=== PATIENT | male | born 1955 | race African-American/Black ===

== ENCOUNTER 2020-06-24 09:28 | Inpatient (IN) | payer OTHER ==
[2020-06-24 11:35] VITALS: BMI 19.2
[2020-06-24] MEDS ORDERED: METHADONE HCL 10 MG TABLET (FOR DETOX USE ONLY) ONE (11:48)
[2020-06-24] MEDS ORDERED: MAGNESIUM HYDROX 2400MG/30ML ORAL SUSPENSION 30 ML CUP PO PRN (12:01)
[2020-06-24] MEDS ORDERED: MAG HYDROX/AL HYDROX/SIMETH 30 ML UNIT-DOSE CUP PO PRN (12:01)
[2020-06-24] MEDS ORDERED: BISMUTH SUBSALICYLATE 262 MG/15 ML BTL PO PRN (12:01)
[2020-06-24] MEDS ORDERED: NICOTINE POLACRILEX 2 MG GUM BUC PRN (12:01)
[2020-06-24] MEDS ORDERED: ACETAMINOPHEN 325 MG TABLET (FP) PO PRN ×2 (12:01)
[2020-06-24] MEDS ORDERED: METHADONE HCL 10 MG TABLET (FOR DETOX USE ONLY) PO ONE (12:01)
[2020-06-24] MEDS ORDERED: METHOCARBAMOL 500 MG TABLET PO PRN (12:01)
[2020-06-24] MEDS ORDERED: MAGNESIUM CITRATE 300 ML BOTTLE PO PRN (12:01)
[2020-06-24] MEDS ORDERED: cloNIDine HCL 0.1 MG TABLET PO PRN (12:01)
[2020-06-24] MEDS ORDERED: IBUPROFEN 400 MG TABLET (FP) PO PRN (12:01)
[2020-06-24] MEDS ORDERED: MENTHOL/PHENOL 1 EACH UD MM PRN (12:01)
[2020-06-24] MEDS ORDERED: ONDANSETRON *ODT* 4 MG TABLET SL PRN (12:01)
[2020-06-24] MEDS: NICOTINE 7 MG/24 HOURS TOPICAL PATCH TD SCH (13:14)
[2020-06-24] MEDS: HYDROCHLOROTHIAZIDE 25 MG TABLET (FP) PO SCH (13:14)
[2020-06-24] MEDS: hydrOXYzine PAMOATE 25 MG CAPSULE (FP) PO SCH ×3 (13:14→22:26)
[2020-06-24] MEDS: PRENATAL VITAMINS W/ FOLIC ACID TABLET (FP) PO SCH (13:14)
[2020-06-24] MEDS: THIAMINE HCL 100 MG TABLET (FP) PO SCH (22:24)
[2020-06-24] MEDS: MELATONIN 5 MG TABLETS PO SCH (22:24)
[2020-06-25] MEDS: hydrOXYzine PAMOATE 25 MG CAPSULE (FP) PO SCH ×5 (07:06→22:26)
[2020-06-25] MEDS ORDERED: METHADONE HCL 5 MG TABLET (FOR DETOX USE ONLY) ONE (09:00)
[2020-06-25] MEDS ORDERED: METHADONE HCL 10 MG TABLET (FOR DETOX USE ONLY) ONE (09:00)
[2020-06-25] MEDS ORDERED: METHADONE (DETOX) 20 MG, METHADONE (DETOX) 5 MG PO ONE (10:00)
[2020-06-25] MEDS: HYDROCHLOROTHIAZIDE 25 MG TABLET (FP) PO SCH (10:42)
[2020-06-25] MEDS: PRENATAL VITAMINS W/ FOLIC ACID TABLET (FP) PO SCH (10:42)
[2020-06-25] MEDS: NICOTINE 7 MG/24 HOURS TOPICAL PATCH TD SCH (10:42)
[2020-06-25 11:08] LABS: HEMATOCRIT 38.2 % (35.4-49); HEMOGLOBIN 12.8 GM/dL (11.7-16.9); MCH 33.5 pg (25.7-33.7); MCHC 33.6 g/dl (32.0-35.9); MEAN CELL VOLUME 99.8 fl (80-96); MEAN PLT VOLUME 11.3 fl (7.5-11.1); PLATELET COUNT 109 K/MM3 (134-434); RBC 3.82 M/mm3 (4.00-5.60); RDW 15.6 % (11.9-15.9); WHITE BLOOD COUNT 3.5 K/mm3 (4.0-10.0)
[2020-06-25 11:17] LABS: CALCIUM 9.4 mg/dL (8.5-10.1)
[2020-06-25 11:18] LABS: ALBUMIN 3.5 g/dl (3.4-5.0)
[2020-06-25 11:23] LABS: BILIRUBIN,TOTAL 0.5 mg/dL (0.2-1); TOT PROT 7.1 g/dl (6.4-8.2)
[2020-06-25] MEDS: MELATONIN 5 MG TABLETS PO SCH (22:26)
[2020-06-25] MEDS: THIAMINE HCL 100 MG TABLET (FP) PO SCH (22:26)
[2020-06-26] MEDS: hydrOXYzine PAMOATE 25 MG CAPSULE (FP) PO SCH ×5 (06:49→22:03)
[2020-06-26] MEDS ORDERED: METHADONE HCL 10 MG TABLET (FOR DETOX USE ONLY) PO ONE (10:00)
[2020-06-26] MEDS: NICOTINE 7 MG/24 HOURS TOPICAL PATCH TD SCH (10:19)
[2020-06-26] MEDS: HYDROCHLOROTHIAZIDE 25 MG TABLET (FP) PO SCH (10:19)
[2020-06-26] MEDS: PRENATAL VITAMINS W/ FOLIC ACID TABLET (FP) PO SCH (10:19)
[2020-06-26] MEDS: MELATONIN 5 MG TABLETS PO SCH (22:03)
[2020-06-26] MEDS: THIAMINE HCL 100 MG TABLET (FP) PO SCH (22:03)
[2020-06-27] MEDS: hydrOXYzine PAMOATE 25 MG CAPSULE (FP) PO SCH ×5 (05:50→22:30)
[2020-06-27] MEDS ORDERED: METHADONE HCL 5 MG TABLET (FOR DETOX USE ONLY) ONE (09:24)
[2020-06-27] MEDS ORDERED: METHADONE HCL 10 MG TABLET (FOR DETOX USE ONLY) ONE (09:24)
[2020-06-27] MEDS ORDERED: METHADONE (DETOX) 10 MG, METHADONE (DETOX) 5 MG PO ONE (10:00)
[2020-06-27] MEDS: PRENATAL VITAMINS W/ FOLIC ACID TABLET (FP) PO SCH (10:11)
[2020-06-27] MEDS: HYDROCHLOROTHIAZIDE 25 MG TABLET (FP) PO SCH (10:11)
[2020-06-27] MEDS: NICOTINE 7 MG/24 HOURS TOPICAL PATCH TD SCH (10:11)
[2020-06-27] MEDS: THIAMINE HCL 100 MG TABLET (FP) PO SCH (22:30)
[2020-06-27] MEDS: MELATONIN 5 MG TABLETS PO SCH (22:31)
[2020-06-28] MEDS: hydrOXYzine PAMOATE 25 MG CAPSULE (FP) PO SCH ×5 (05:15→22:12)
[2020-06-28] MEDS ORDERED: METHADONE HCL 10 MG TABLET (FOR DETOX USE ONLY) PO ONE (10:00)
[2020-06-28] MEDS: NICOTINE 7 MG/24 HOURS TOPICAL PATCH TD SCH (10:04)
[2020-06-28] MEDS: HYDROCHLOROTHIAZIDE 25 MG TABLET (FP) PO SCH (10:05)
[2020-06-28] MEDS: PRENATAL VITAMINS W/ FOLIC ACID TABLET (FP) PO SCH (10:06)
[2020-06-28 10:07] LABS: SARS-CoV-2 NAA Not Detected (Not Detected)
[2020-06-28] MEDS: THIAMINE HCL 100 MG TABLET (FP) PO SCH (22:12)
[2020-06-28] MEDS: MELATONIN 5 MG TABLETS PO SCH (22:12)
[2020-06-29] MEDS: hydrOXYzine PAMOATE 25 MG CAPSULE (FP) PO SCH ×2 (05:13→10:39)
[2020-06-29] MEDS ORDERED: METHADONE HCL 5 MG TABLET (FOR DETOX USE ONLY) PO ONE (06:00)
[2020-06-29 09:32] VITALS: BP 122/71; PULSE 110; TEMP 98.6
[2020-06-29] MEDS: HYDROCHLOROTHIAZIDE 25 MG TABLET (FP) PO SCH (10:38)
[2020-06-29] MEDS: PRENATAL VITAMINS W/ FOLIC ACID TABLET (FP) PO SCH (10:39)
[2020-06-29] MEDS: NICOTINE 7 MG/24 HOURS TOPICAL PATCH TD SCH (10:39)
== END 2020-06-29 11:45 | disposition other institution (70) | DRG 897 ==
LOC: YASAS 09:28 → Y6N 12:25
PROVIDERS: ADMIT Allergy & Immunology; ATTEND Allergy & Immunology
PROC: HZ2ZZZZ Detoxification Services for Substance Abuse Treatment (ICD-10-PCS; principal; 2020-06-24)
DX: F11.23 Opioid dependence with withdrawal (principal); F17.210 Nicotine dependence, cigarettes, uncomplicated; D69.6 Thrombocytopenia, unspecified; D72.819 Decreased white blood cell count, unspecified; I10 Essential (primary) hypertension; M54.5 Low back pain; G89.29 Other chronic pain; Z87.828 Personal history of other (healed) physical injury and trauma; Z59.0 Homelessness
CPT/HCPCS: 36415; 80053; 84520; 85027; 86780; 86803; 93005; 93010; C9803; J0735; U0003; U0005

== ENCOUNTER 2020-06-29 11:52 | Inpatient (IN) | payer OTHER ==
[2020-06-29] MEDS ORDERED: guaiFENesin 200 MG/10 ML 10 ML UNIT-DOSE CUPS PO PRN (11:54)
[2020-06-29] MEDS ORDERED: MAG HYDROX/AL HYDROX/SIMETH 30 ML UNIT-DOSE CUP PO PRN (11:54)
[2020-06-29] MEDS ORDERED: P-EPHED 60MG/TRIPROLIDI 2.5MG TABLET PO PRN (11:54)
[2020-06-29] MEDS ORDERED: LOPERAMIDE HCL 2 MG CAPSULE PO PRN (11:54)
[2020-06-29] MEDS ORDERED: MENTHOL/PHENOL 1 EACH UD MM PRN (11:54)
[2020-06-29] MEDS ORDERED: ACETAMINOPHEN 325 MG TABLET (FP) PO PRN (11:54)
[2020-06-29] MEDS ORDERED: MAGNESIUM CITRATE 300 ML BOTTLE PO PRN (11:54)
[2020-06-29] MEDS ORDERED: MAGNESIUM HYDROX 2400MG/30ML ORAL SUSPENSION 30 ML CUP PO PRN (11:54)
[2020-06-29] MEDS ORDERED: NICOTINE POLACRILEX 2 MG GUM BUC PRN (13:50)
[2020-06-29] MEDS ORDERED: hydrOXYzine PAMOATE 25 MG CAPSULE (FP) PO SCH (14:00)
[2020-06-29] MEDS: hydrOXYzine PAMOATE 25 MG CAPSULE (FP) PO PRN (22:08)
[2020-06-29] MEDS: MELATONIN 5 MG TABLETS PO SCH (22:08)
[2020-06-29] MEDS: THIAMINE HCL 100 MG TABLET (FP) PO SCH (22:09)
[2020-06-30] MEDS: NICOTINE 7 MG/24 HOURS TOPICAL PATCH TD SCH (09:39)
[2020-06-30] MEDS: PRENATAL VITAMINS W/ FOLIC ACID TABLET (FP) PO SCH (09:39)
[2020-06-30] MEDS: HYDROCHLOROTHIAZIDE 25 MG TABLET (FP) PO SCH (09:39)
[2020-06-30] MEDS: MELATONIN 5 MG TABLETS PO SCH (21:07)
[2020-06-30] MEDS: THIAMINE HCL 100 MG TABLET (FP) PO SCH (21:07)
[2020-06-30] MEDS: hydrOXYzine PAMOATE 25 MG CAPSULE (FP) PO PRN (21:08)
[2020-07-01] MEDS: PRENATAL VITAMINS W/ FOLIC ACID TABLET (FP) PO SCH (09:50)
[2020-07-01] MEDS: IBUPROFEN 400 MG TABLET (FP) PO PRN (09:52)
[2020-07-01] MEDS: hydrOXYzine PAMOATE 25 MG CAPSULE (FP) PO PRN ×2 (09:53→21:09)
[2020-07-01] MEDS: NICOTINE 7 MG/24 HOURS TOPICAL PATCH TD SCH (09:53)
[2020-07-01] MEDS: HYDROCHLOROTHIAZIDE 25 MG TABLET (FP) PO SCH (09:53)
[2020-07-01] MEDS: METHOCARBAMOL 500 MG TABLET PO SCH ×3 (13:14→21:09)
[2020-07-01] MEDS: THIAMINE HCL 100 MG TABLET (FP) PO SCH (21:09)
[2020-07-01] MEDS: MELATONIN 5 MG TABLETS PO SCH (21:09)
[2020-07-02] MEDS: METHOCARBAMOL 500 MG TABLET PO SCH ×4 (09:34→21:08)
[2020-07-02] MEDS: HYDROCHLOROTHIAZIDE 25 MG TABLET (FP) PO SCH (09:35)
[2020-07-02] MEDS: PRENATAL VITAMINS W/ FOLIC ACID TABLET (FP) PO SCH (09:35)
[2020-07-02] MEDS: NICOTINE 7 MG/24 HOURS TOPICAL PATCH TD SCH (09:35)
[2020-07-02] MEDS ORDERED: LISINOPRIL 20 MG TABLET PO ONE (11:15)
[2020-07-02] MEDS: MELATONIN 5 MG TABLETS PO SCH (21:08)
[2020-07-02] MEDS: THIAMINE HCL 100 MG TABLET (FP) PO SCH (21:08)
[2020-07-03 08:05] LABS: SARS-CoV-2 NAA Not Detected (Not Detected)
[2020-07-03] MEDS: PRENATAL VITAMINS W/ FOLIC ACID TABLET (FP) PO SCH (09:35)
[2020-07-03] MEDS: HYDROCHLOROTHIAZIDE 25 MG TABLET (FP) PO SCH (09:35)
[2020-07-03] MEDS: LISINOPRIL 10 MG TABLET PO SCH (09:35)
[2020-07-03] MEDS: NICOTINE 7 MG/24 HOURS TOPICAL PATCH TD SCH (09:35)
[2020-07-03] MEDS: METHOCARBAMOL 500 MG TABLET PO SCH ×4 (09:35→21:19)
[2020-07-03] MEDS: THIAMINE HCL 100 MG TABLET (FP) PO SCH (21:19)
[2020-07-03] MEDS: MELATONIN 5 MG TABLETS PO SCH (21:19)
[2020-07-04] MEDS ORDERED: cloNIDine HCL 0.1 MG TABLET PO ONE (07:33)
[2020-07-04] MEDS: PRENATAL VITAMINS W/ FOLIC ACID TABLET (FP) PO SCH (09:20)
[2020-07-04] MEDS: NICOTINE 7 MG/24 HOURS TOPICAL PATCH TD SCH (09:20)
[2020-07-04] MEDS: HYDROCHLOROTHIAZIDE 25 MG TABLET (FP) PO SCH (09:20)
[2020-07-04] MEDS: LISINOPRIL 10 MG TABLET PO SCH (09:20)
[2020-07-04] MEDS: METHOCARBAMOL 500 MG TABLET PO SCH ×4 (10:05→21:04)
[2020-07-04] MEDS: IBUPROFEN 400 MG TABLET (FP) PO PRN (10:51)
[2020-07-04] MEDS: MELATONIN 5 MG TABLETS PO SCH (21:04)
[2020-07-04] MEDS: THIAMINE HCL 100 MG TABLET (FP) PO SCH (21:04)
[2020-07-04] MEDS: hydrOXYzine PAMOATE 25 MG CAPSULE (FP) PO PRN (23:43)
[2020-07-05] MEDS: hydrOXYzine PAMOATE 25 MG CAPSULE (FP) PO PRN ×3 (10:10→21:32)
[2020-07-05] MEDS: HYDROCHLOROTHIAZIDE 25 MG TABLET (FP) PO SCH (10:10)
[2020-07-05] MEDS: METHOCARBAMOL 500 MG TABLET PO SCH ×4 (10:10→21:31)
[2020-07-05] MEDS: LISINOPRIL 10 MG TABLET PO SCH (10:10)
[2020-07-05] MEDS: PRENATAL VITAMINS W/ FOLIC ACID TABLET (FP) PO SCH (10:10)
[2020-07-05] MEDS: NICOTINE 7 MG/24 HOURS TOPICAL PATCH TD SCH (10:11)
[2020-07-05] MEDS: MELATONIN 5 MG TABLETS PO SCH (21:31)
[2020-07-05] MEDS: THIAMINE HCL 100 MG TABLET (FP) PO SCH (21:31)
[2020-07-06] MEDS: IBUPROFEN 400 MG TABLET (FP) PO PRN ×2 (06:40→22:09)
[2020-07-06] MEDS: PRENATAL VITAMINS W/ FOLIC ACID TABLET (FP) PO SCH (10:29)
[2020-07-06] MEDS: HYDROCHLOROTHIAZIDE 25 MG TABLET (FP) PO SCH (10:29)
[2020-07-06] MEDS: hydrOXYzine PAMOATE 25 MG CAPSULE (FP) PO PRN ×2 (10:29→14:21)
[2020-07-06] MEDS: METHOCARBAMOL 500 MG TABLET PO SCH ×4 (10:29→21:07)
[2020-07-06] MEDS: LISINOPRIL 10 MG TABLET PO SCH (10:29)
[2020-07-06] MEDS: NICOTINE 7 MG/24 HOURS TOPICAL PATCH TD SCH (10:30)
[2020-07-06] MEDS: MELATONIN 5 MG TABLETS PO SCH (21:07)
[2020-07-06] MEDS: THIAMINE HCL 100 MG TABLET (FP) PO SCH (21:07)
[2020-07-07] MEDS: IBUPROFEN 400 MG TABLET (FP) PO PRN (07:45)
[2020-07-07] MEDS: PRENATAL VITAMINS W/ FOLIC ACID TABLET (FP) PO SCH (09:37)
[2020-07-07] MEDS: HYDROCHLOROTHIAZIDE 25 MG TABLET (FP) PO SCH (09:37)
[2020-07-07] MEDS: METHOCARBAMOL 500 MG TABLET PO SCH ×4 (09:37→21:02)
[2020-07-07] MEDS: LISINOPRIL 10 MG TABLET PO SCH (09:37)
[2020-07-07] MEDS: hydrOXYzine PAMOATE 25 MG CAPSULE (FP) PO PRN ×2 (09:37→21:03)
[2020-07-07] MEDS: NICOTINE 7 MG/24 HOURS TOPICAL PATCH TD SCH (09:38)
[2020-07-07] MEDS: LIDOCAINE 5% TOPICAL PATCH TP SCH (12:11)
[2020-07-07] MEDS: MELATONIN 5 MG TABLETS PO SCH (21:02)
[2020-07-07] MEDS: THIAMINE HCL 100 MG TABLET (FP) PO SCH (21:02)
[2020-07-07] MEDS: ARTIFICIAL TEARS (POLYVINYL ALCOHOL) OPTH DROPS OU PRN (21:04)
[2020-07-07] MEDS: LIDOCAINE PATCH REMOVAL MC SCH (21:05)
[2020-07-08] MEDS ORDERED: MASKS NR ONE (06:03)
[2020-07-08] MEDS: IBUPROFEN 400 MG TABLET (FP) PO PRN (06:03)
[2020-07-08] MEDS: NICOTINE 7 MG/24 HOURS TOPICAL PATCH TD SCH (09:16)
[2020-07-08] MEDS: METHOCARBAMOL 500 MG TABLET PO SCH ×4 (09:17→21:09)
[2020-07-08] MEDS: PRENATAL VITAMINS W/ FOLIC ACID TABLET (FP) PO SCH (09:17)
[2020-07-08] MEDS: LIDOCAINE 5% TOPICAL PATCH TP SCH (09:17)
[2020-07-08] MEDS: LISINOPRIL 10 MG TABLET PO SCH (09:17)
[2020-07-08] MEDS: HYDROCHLOROTHIAZIDE 25 MG TABLET (FP) PO SCH (09:17)
[2020-07-08] MEDS: BUPRENORPHINE/NALOXONE 4 MG/1 MG FILM PACKET SL SCH (15:20)
[2020-07-08] MEDS: THIAMINE HCL 100 MG TABLET (FP) PO SCH (21:09)
[2020-07-08] MEDS: MELATONIN 5 MG TABLETS PO SCH (21:09)
[2020-07-08] MEDS: LIDOCAINE PATCH REMOVAL MC SCH (21:10)
[2020-07-08] MEDS: hydrOXYzine PAMOATE 25 MG CAPSULE (FP) PO PRN (21:10)
[2020-07-09] MEDS: hydrOXYzine PAMOATE 25 MG CAPSULE (FP) PO PRN ×3 (01:22→21:17)
[2020-07-09] MEDS: BUPRENORPHINE/NALOXONE 4 MG/1 MG FILM PACKET SL SCH (10:19)
[2020-07-09] MEDS: LIDOCAINE 5% TOPICAL PATCH TP SCH (10:19)
[2020-07-09] MEDS: METHOCARBAMOL 500 MG TABLET PO SCH ×4 (10:19→21:16)
[2020-07-09] MEDS: HYDROCHLOROTHIAZIDE 25 MG TABLET (FP) PO SCH (10:19)
[2020-07-09] MEDS: PRENATAL VITAMINS W/ FOLIC ACID TABLET (FP) PO SCH (10:19)
[2020-07-09] MEDS: LISINOPRIL 10 MG TABLET PO SCH (10:23)
[2020-07-09] MEDS: NICOTINE 7 MG/24 HOURS TOPICAL PATCH TD SCH (10:24)
[2020-07-09] MEDS: MELATONIN 5 MG TABLETS PO SCH (21:16)
[2020-07-09] MEDS: LIDOCAINE PATCH REMOVAL MC SCH (21:18)
[2020-07-09] MEDS: THIAMINE HCL 100 MG TABLET (FP) PO SCH (21:18)
[2020-07-10] MEDS: hydrOXYzine PAMOATE 25 MG CAPSULE (FP) PO PRN ×2 (02:21→09:50)
[2020-07-10] MEDS: IBUPROFEN 400 MG TABLET (FP) PO PRN (02:21)
[2020-07-10] MEDS: BUPRENORPHINE/NALOXONE 4 MG/1 MG FILM PACKET SL SCH (09:49)
[2020-07-10] MEDS: LIDOCAINE 5% TOPICAL PATCH TP SCH (09:50)
[2020-07-10] MEDS: LISINOPRIL 10 MG TABLET PO SCH (09:50)
[2020-07-10] MEDS: METHOCARBAMOL 500 MG TABLET PO SCH ×4 (09:50→21:34)
[2020-07-10] MEDS: HYDROCHLOROTHIAZIDE 25 MG TABLET (FP) PO SCH (09:50)
[2020-07-10] MEDS: PRENATAL VITAMINS W/ FOLIC ACID TABLET (FP) PO SCH (09:50)
[2020-07-10] MEDS: NICOTINE 7 MG/24 HOURS TOPICAL PATCH TD SCH (09:50)
[2020-07-10] MEDS: MELATONIN 5 MG TABLETS PO SCH (21:34)
[2020-07-10] MEDS: THIAMINE HCL 100 MG TABLET (FP) PO SCH (21:34)
[2020-07-10] MEDS: LIDOCAINE PATCH REMOVAL MC SCH (21:34)
[2020-07-11] MEDS: BUPRENORPHINE/NALOXONE 4 MG/1 MG FILM PACKET SL SCH (10:15)
[2020-07-11] MEDS: PRENATAL VITAMINS W/ FOLIC ACID TABLET (FP) PO SCH (10:16)
[2020-07-11] MEDS: HYDROCHLOROTHIAZIDE 25 MG TABLET (FP) PO SCH (10:16)
[2020-07-11] MEDS: hydrOXYzine PAMOATE 25 MG CAPSULE (FP) PO PRN (10:16)
[2020-07-11] MEDS: LIDOCAINE 5% TOPICAL PATCH TP SCH (10:16)
[2020-07-11] MEDS: NICOTINE 7 MG/24 HOURS TOPICAL PATCH TD SCH (10:16)
[2020-07-11] MEDS: METHOCARBAMOL 500 MG TABLET PO SCH ×4 (10:16→21:07)
[2020-07-11] MEDS: LISINOPRIL 10 MG TABLET PO SCH (10:16)
[2020-07-11] MEDS: ARTIFICIAL TEARS (POLYVINYL ALCOHOL) OPTH DROPS OU PRN (10:18)
[2020-07-11] MEDS: THIAMINE HCL 100 MG TABLET (FP) PO SCH (21:07)
[2020-07-11] MEDS: MELATONIN 5 MG TABLETS PO SCH (21:07)
[2020-07-11] MEDS: LIDOCAINE PATCH REMOVAL MC SCH (21:08)
[2020-07-12] MEDS: IBUPROFEN 400 MG TABLET (FP) PO PRN (03:07)
[2020-07-12] MEDS: BUPRENORPHINE/NALOXONE 4 MG/1 MG FILM PACKET SL SCH (10:22)
[2020-07-12] MEDS: PRENATAL VITAMINS W/ FOLIC ACID TABLET (FP) PO SCH (10:22)
[2020-07-12] MEDS: hydrOXYzine PAMOATE 25 MG CAPSULE (FP) PO PRN ×2 (10:22→14:50)
[2020-07-12] MEDS: LISINOPRIL 10 MG TABLET PO SCH (10:23)
[2020-07-12] MEDS: METHOCARBAMOL 500 MG TABLET PO SCH ×4 (10:23→21:23)
[2020-07-12] MEDS: HYDROCHLOROTHIAZIDE 25 MG TABLET (FP) PO SCH (10:23)
[2020-07-12] MEDS: NICOTINE 7 MG/24 HOURS TOPICAL PATCH TD SCH (10:23)
[2020-07-12] MEDS: LIDOCAINE 5% TOPICAL PATCH TP SCH (10:23)
[2020-07-12] MEDS: MELATONIN 5 MG TABLETS PO SCH (21:23)
[2020-07-12] MEDS: THIAMINE HCL 100 MG TABLET (FP) PO SCH (21:23)
[2020-07-12] MEDS: LIDOCAINE PATCH REMOVAL MC SCH (21:24)
[2020-07-13 07:09] VITALS: BP 135/84; PULSE 86; TEMP 97.5
[2020-07-13] MEDS ORDERED: BUPRENORPHINE/NALOXONE 4 MG/1 MG FILM PACKET SL ONE (08:30)
== END 2020-07-13 08:51 | disposition home or self-care (01) | DRG 895 ==
LOC: YASAS 11:52 → Y3E 11:53 → Y3W 07-04 14:20
PROVIDERS: ADMIT Allergy & Immunology; ATTEND Allergy & Immunology
PROC: HZ42ZZZ Group Counseling for Substance Abuse Treatment, Cognitive-Behavioral (ICD-10-PCS; principal; 2020-06-29)
DX: F11.20 Opioid dependence, uncomplicated (principal); F14.20 Cocaine dependence, uncomplicated; F19.280 Other psychoactive substance dependence with psychoactive substance-induced anxiety disorder; Z68.1 Body mass index [BMI] 19.9 or less, adult; F10.20 Alcohol dependence, uncomplicated; F13.10 Sedative, hypnotic or anxiolytic abuse, uncomplicated; F12.20 Cannabis dependence, uncomplicated; F17.210 Nicotine dependence, cigarettes, uncomplicated; I10 Essential (primary) hypertension; M54.5 Low back pain; R63.6 Underweight; Z59.0 Homelessness
CPT/HCPCS: C9803; J0735; U0003; U0005